=== PATIENT | male | born 1965 | race African-American/Black ===

== ENCOUNTER 2020-01-18 01:59 | Emergency (ER) | payer MEDICARE ==
[2020-01-18] MEDS ORDERED: ALBUTEROL 2.5 MG/3 ML NEBU IH ONE (02:52)
[2020-01-18] MEDS ORDERED: IPRATROPIUM 0.02% NEBU 2.5 ML IH ONE (02:52)
[2020-01-18] MEDS ORDERED: methylPREDNISolone Sod Succinate 125 MG/2 ML INJ IV ONE (02:52)
[2020-01-18] MEDS ORDERED: MAGNESIUM SULFATE 2 GM/50 ML BAG IV ONE (02:53)
--- NOTE | 2020-01-18 03:00 | Emergency Department Report ---
ED Shortness of Breath HPI - General Chief Complaint: Chest Pain Stated Complaint: ANTONIA Time Seen by Provider: 01/18/20 02:22 Source: EMS Mode of arrival: Stretcher Limitations: Language Barrier (translation line used) - History of Present Illness Initial Comments: 54-year-old male the past medical history early cholesterol, seizures, and asthma presents to the hospital with complaints of subjective fever and shortness of breath for 4 days. Patient complains of only occasional cough and has not lost a sense of taste or smell. He is not receiving tested for COVID. He denies nausea and vomiting but states he is having some diarrhea. He denies pain including headache, chest pain, and abdominal pain. He has been using his albuterol inhaler without improvement. Symptoms are also worse when people in his home smokes cigarettes he denies history of PE/DVT, calf tenderness, or recent travel. He has been compliant with medications. - Related Data Home Medications Medication Instructions Recorded Confirmed Last Taken Albuterol *Only Ed* [Proventil 2.5 mg IH PRN PRN 11/24/13 01/13/14 Unknown 0.5% NEBS] Citalopram [Celexa] 20 mg PO DAILY 11/24/13 01/13/14 11/25/13 Diazepam [Valium] 5 mg PO DAILY 11/24/13 01/13/14 11/25/13 Gabapentin 300 mg PO DAILY 11/24/13 01/13/14 11/25/13 Montelukast (Nf) [Singulair (Nf)] 5 mg PO DAILY 11/24/13 01/13/14 Unknown Mupirocin [Bactroban 2% OINT] 1 each TP TID 11/24/13 01/13/14 Unknown Quetiapine Fumarate [SEROquel] 100 mg PO DAILY 11/24/13 01/13/14 11/25/13 hydrOXYzine HCL [Atarax] 10 mg PO Q6HR 11/24/13 01/13/14 Unknown prednisoLONE SOD PHOSPHAT [Orapred] 7 ml PO BID 11/24/13 01/13/14 Unknown raNITIdine HCL [Ranitidine 150mg 150 mg PO DAILY 11/24/13 01/13/14 11/25/13 Cap] Previous Rx's Medication Instructions Recorded Last Taken Type Triamcinolone 0.1% [Kenalog 0.1% 1 applic TP BID #1 tube 14 11/25/13 Rx OINT] levETIRAcetam [Keppra] 750 mg PO BID #60 tab-cap 11/24/13 11/25/13 Rx ALBUTEROL NEB's [Proventil 0.083% 2.5 mg IH TID PRN #30 neb 01/18/20 Unknown Rx NEBS] Levalbuterol Hfa 45 Mcg/Puff 2 puff IH Q4H PRN #1 inhalation 01/18/20 Unknown Rx [Xopenex Hfa (Nf)] Nebulizer and Compressor 1 each MC PRN PRN #1 each 01/18/20 Unknown Rx [Sootheneb Compressor Nebulizer] Pseudoephedrine ER [Sudafed 12 Hr] 120 mg PO BID PRN #10 tablet.er 01/18/20 Unknown Rx Allergies Allergy/AdvReac Type Severity Reaction Status Date / Time No Known Allergies Allergy Verified 11/26/13 13:52 ED Review of Systems ROS: Stated complaint: ANTONIA Other details as noted in HPI Comment: All other systems reviewed and negative ED Past Medical Hx - Past Medical History Previous Medical History?: Yes Hx Seizures: Yes Hx Psychiatric Treatment: Yes Hx Asthma: Yes Additional medical history: hx of Brain Tumor. Elevated cholesterol - Surgical History Past Surgical History?: Yes Additional Surgical History: unk - Social History Smoking Status: Never Smoker Substance Use Type: None - Medications Home Medications: Home Medications Medication Instructions Recorded Confirmed Last Taken Type Triamcinolone 0.1% [Kenalog 0.1% 1 applic TP BID #1 tube 11/08/13 01/13/14 11/25/13 Rx OINT] Albuterol *Only Ed* [Proventil 2.5 mg IH PRN PRN 11/24/13 01/13/14 Unknown History 0.5% NEBS] Citalopram [Celexa] 20 mg PO DAILY 11/24/13 01/13/14 11/25/13 History Diazepam [Valium] 5 mg PO DAILY 11/24/13 01/13/14 11/25/13 History Gabapentin 300 mg PO DAILY 11/24/13 01/13/14 11/25/13 History Montelukast (Nf) [Singulair (Nf)] 5 mg PO DAILY 11/24/13 01/13/14 Unknown History Mupirocin [Bactroban 2% OINT] 1 each TP TID 11/24/13 01/13/14 Unknown History Quetiapine Fumarate [SEROquel] 100 mg PO DAILY 11/24/13 01/13/14 11/25/13 History hydrOXYzine HCL [Atarax] 10 mg PO Q6HR 11/24/13 01/13/14 Unknown History levETIRAcetam [Keppra] 750 mg PO BID #60 tab-cap 11/24/13 01/13/14 11/25/13 Rx prednisoLONE SOD PHOSPHAT [Orapred] 7 ml PO BID 11/24/13 01/13/14 Unknown History raNITIdine HCL [Ranitidine 150mg 150 mg PO DAILY 11/24/13 01/13/14 11/25/13 History Cap] ALBUTEROL NEB's [Proventil 0.083% 2.5 mg IH TID PRN #30 neb 01/18/20 Unknown Rx NEBS] Levalbuterol Hfa 45 Mcg/Puff 2 puff IH Q4H PRN #1 inhalation 01/18/20 Unknown Rx [Xopenex Hfa (Nf)] Nebulizer and Compressor 1 each MC PRN PRN #1 each 01/18/20 Unknown Rx [Sootheneb Compressor Nebulizer] Pseudoephedrine ER [Sudafed 12 Hr] 120 mg PO BID PRN #10 tablet.er 01/18/20 Unknown Rx ED Physical Exam - General Limitations: Language Barrier - Other Other exam information: General: No acute distress Head: Atraumatic Eyes: normal appearance ENT: Moist mucous membranes, nasal congestion which patient states is making it hard for him to breathe is Neck: Normal appearance, no midline tenderness Chest: Clear to auscultation bilaterally CV: Regular rate and rhythm Abdomen: Soft, normal bowel sounds, nontender, nondistended, no rebound or guarding Back: Normal inspection Extremity: Normal inspection, full range of motion, no calf tenderness or leg edema Neuro: Alert O x 3, no facial asymmetry, speech clear, no gross motor sensory deficit Psych: Appropriate behavior Skin: Skin signs of cupping noted to back ED Course Vital Signs 01/18/20 01/18/20 02:00 03:52 Temperature 98.1 F Pulse Rate 89 Pulse Rate [ 77 Anterior Bilateral Throughout] Respiratory 16 Rate Respiratory 20 Rate [Anterior Bilateral Throughout] Blood Pressure 141/95 [Left] O2 Sat by Pulse 98 Oximetry ED Medical Decision Making - Lab Data Result diagrams: 01/18/20 03:01 01/18/20 03:01 Lab Results 01/18/20 01/18/20 01/18/20 Range/Units 03:01 03:01 03:01 WBC 5.6 (4.5-11.0) K/mm3 RBC 4.90 (3.65-5.03) M/mm3 Hgb 14.4 (11.8-15.2) gm/dl Hct 42.6 (35.5-45.6) % MCV 87 (84-94) fl MCH 30 (28-32) pg MCHC 34 (32-34) % RDW 12.9 L (13.2-15.2) % Plt Count 204 (140-440) K/mm3 Lymph % (Auto) 10.5 L (13.4-35.0) % [place] % (Auto) 12.8 H (0.0-7.3) % Eos % (Auto) 0.5 (0.0-4.3) % Baso % (Auto) 0.1 (0.0-1.8) % Lymph # (Auto) 0.6 L (1.2-5.4) K/mm3 [place] # (Auto) 0.7 (0.0-0.8) K/mm3 Eos # (Auto) 0.0 (0.0-0.4) K/mm3 Baso # (Auto) 0.0 (0.0-0.1) K/mm3 Seg Neutrophils % 76.1 H (40.0-70.0) % Seg Neutrophils # 4.3 (1.8-7.7) K/mm3 PT 12.2 (12.2-14.9) Sec. INR 0.89 (0.87-1.13) Sodium 135 L (137-145) mmol/L Potassium 4.0 (3.6-5.0) mmol/L Chloride 98.7 (98-107) mmol/L Carbon Dioxide 26 (22-30) mmol/L Anion Gap 14 mmol/L BUN 15 (9-20) mg/dL Creatinine 0.9 (0.8-1.3) mg/dL Estimated GFR > 60 ml/min BUN/Creatinine Ratio 17 % Glucose 124 H (75-100) mg/dL Calcium 9.4 (8.4-10.2) mg/dL NT-Pro-B Natriuret Pep < 5 (0-900) pg/mL - EKG Data -: EKG Interpreted by Me ([facility]) EKG shows normal: sinus rhythm, ST-T waves (No STEMI) Rate: normal - Radiology Data Radiology results: report reviewed CHEST PA AND LATERAL VIEWS INDICATION: sob, cough, fever. COMPARISON: None FINDINGS: Support devices: None Heart: Normal Lungs/Pleura: No acute pulmonary or pleural findings. IMPRESSION: 1. No significant abnormality. - Medical Decision Making Patient ED work-up unremarkable. No signs of hypoxia or significant respiratory distress. Patient treated with Solu-Medrol and magnesium with some improvement in symptoms. Complains of persistent nasal congestion. Patient be discharged on medications for URI/asthma exacerbation and encouraged to receive outpatient pelvic testing. Community Health Counselor used at discharge to explain ED work-up results, disposition plan and to answer questions. Patient has a follow-up visit with his PMD on January 18. Critical Care Time: No Critical care attestation.: If time is entered above; I have spent that time in minutes in the direct care of this critically ill patient, excluding procedure time. ED Disposition Clinical Impression: Asthma exacerbation, URI (upper respiratory infection) Disposition: TO HOME OR SELFCARE Is pt being admited?: No Does the pt Need Aspirin: No Condition: Stable Instructions: Asthma (ED), Upper Respiratory Infection (ED) Additional Instructions: Take the medication as prescribed. Follow-up with your doctor or doctor/clinic provided. Return if symptoms worsen as indicated by your discharge instructions. Prescriptions: ALBUTEROL NEB's [Proventil 0.083% NEBS] 2.5 mg IH TID PRN #30 neb PRN Reason: Wheezing Nebulizer and Compressor [Sootheneb Compressor Nebulizer] 1 each MC PRN PRN #1 each PRN Reason: Wheezing Pseudoephedrine ER [Sudafed 12 Hr] 120 mg PO BID PRN #10 tablet.er PRN Reason: Nasal Congestion Levalbuterol Hfa 45 Mcg/Puff [Xopenex Hfa (Nf)] 2 puff IH Q4H PRN #1 inhalation PRN Reason: Wheezing Referrals: PRIMARY CARE, [Primary Care Provider] - 01/19/20 Time of Disposition: 06:18
--- NOTE | 2020-01-18 03:22 | XRay Report ---
CHEST PA AND LATERAL VIEWS INDICATION: sob, cough, fever. COMPARISON: None FINDINGS: Support devices: None Heart: Normal Lungs/Pleura: No acute pulmonary or pleural findings. IMPRESSION: 1. No significant abnormality. Signer Name: Uvaldo Pierre MD Signed: 01/18/2020 3:17 AM Workstation Name: [id number]
[2020-01-18 03:24] LABS: Basophils % (Auto) 0.1 % (0.0-1.8); Eosinophils % (Auto) 0.5 % (0.0-4.3); Hematocrit 42.6 % (35.5-45.6); Hemoglobin 14.4 gm/dl (11.8-15.2); Lymphocytes # (Auto) 0.6 K/mm3 (1.2-5.4); Lymphocytes % (Auto) 10.5 % (13.4-35.0); Mean Corpuscular HGB Conc 34 % (32-34); Mean Corpuscular Volume 87 fl (84-94); Monocytes # (Auto) 0.7 K/mm3 (0.0-0.8); Monocytes % (Auto) 12.8 % (0.0-7.3); Platelet Count 204 K/mm3 (140-440); Red Cell Distribution Width 12.9 % (13.2-15.2)
[2020-01-18 03:32] LABS: INR 0.89 (0.87-1.13)
[2020-01-18 03:50] LABS: BUN/Creatinine Ratio 17; Blood Urea Nitrogen 15 mg/dL (9-20); Calcium 9.4 mg/dL (8.4-10.2); Hemolysis Index 7
[2020-01-18 06:19] VITALS: BP 125/90
== END 2020-01-18 06:50 | disposition home or self-care (01) ==
LOC: ED 01:59
DX: J06.9 Acute upper respiratory infection, unspecified (principal); J45.901 Unspecified asthma with (acute) exacerbation; E78.00 Pure hypercholesterolemia, unspecified; Z86.69 Personal history of other diseases of the nervous system and sense organs; Z79.899 Other long term (current) drug therapy
CPT/HCPCS: 36415; 71046; 80048; 83880; 85025; 85610; 93005; 94640; 96365; 96375; 99284; J2930; J3475; 94644

== ENCOUNTER 2020-09-05 15:34 | Emergency (ER) | payer MEDICARE ==
[2020-09-05] MEDS ORDERED: levETIRAcetam 1000 MG/NS 0.75% 1,000 MG/100 ML BAG IV ONE (16:12)
--- NOTE | 2020-09-05 16:15 | Emergency Department Report ---
ED Seizure HPI - General Stated Complaint: ANTONIA/SEIZURE Time Seen by Provider: 09/05/20 16:05 Source: EMS, RN notes reviewed, old records reviewed Mode of arrival: Stretcher Limitations: Altered Mental Status - History of Present Illness Initial Comments: Chief complaint: Shortness of breath, seizure HPI: This is a 55-year-old male with history of asthma, seizure disorder, benign brain tumor status post craniotomy presents with shortness of breath which was the initial phone call concern to EMS. Upon EMS arrival patient had generalized tonic-clonic seizure. Patient is currently nonverbal. History obtained from electronic medical record. Patient will make eye contact. He is otherwise nonverbal. MD Complaint: seizure Description of Episode: tonic-clonic movement Witnessed:: Yes Trauma: No Seizure History: known seizure disorder Place: home Possible Precipitating Event: other (Possible preceding asthma attack, initial complaint shortness of breath) Treatments Prior to Arrival: other (EMS transport) - Related Data Home Medications Medication Instructions Recorded Confirmed Last Taken Albuterol *Only Ed* [Proventil 2.5 mg IH PRN PRN 11/24/13 01/13/14 Unknown 0.5% NEBS] Citalopram [Celexa] 20 mg PO DAILY 11/24/13 01/13/14 11/25/13 Diazepam [Valium] 5 mg PO DAILY 11/24/13 01/13/14 11/25/13 Gabapentin 300 mg PO DAILY 11/24/13 01/13/14 11/25/13 Montelukast (Nf) [Singulair (Nf)] 5 mg PO DAILY 11/24/13 01/13/14 Unknown Mupirocin [Bactroban 2% OINT] 1 each TP TID 11/24/13 01/13/14 Unknown Quetiapine Fumarate [SEROquel] 100 mg PO DAILY 11/24/13 01/13/14 11/25/13 hydrOXYzine HCL [Atarax] 10 mg PO Q6HR 11/24/13 01/13/14 Unknown prednisoLONE SOD PHOSPHAT [Orapred] 7 ml PO BID 11/24/13 01/13/14 Unknown raNITIdine HCL [Ranitidine 150mg 150 mg PO DAILY 11/24/13 01/13/14 11/25/13 Cap] Previous Rx's Medication Instructions Recorded Last Taken Type Triamcinolone 0.1% [Kenalog 0.1% 1 applic TP BID #1 tube 11/08/13 11/25/13 Rx OINT] levETIRAcetam [Keppra] 750 mg PO BID #60 tab-cap 11/24/13 11/25/13 Rx ALBUTEROL NEB's [Proventil 0.083% 2.5 mg IH TID PRN #30 neb 01/18/20 Unknown Rx NEBS] Ibuprofen [Motrin] 600 mg PO Q8H PRN #20 tablet 01/18/20 Unknown Rx Levalbuterol Hfa 45 Mcg/Puff 2 puff IH Q4H PRN #1 inhalation 01/18/20 Unknown Rx [Xopenex Hfa (Nf)] Nebulizer and Compressor 1 each MC PRN PRN #1 each 01/18/20 Unknown Rx [Sootheneb Compressor Nebulizer] Pseudoephedrine ER [Sudafed 12 Hr] 120 mg PO BID PRN #10 tablet.er 01/18/20 Unknown Rx levETIRAcetam [Keppra TAB] 750 mg PO BID 30 Days #60 tablet 09/05/20 Unknown Rx Allergies Allergy/AdvReac Type Severity Reaction Status Date / Time No Known Allergies Allergy Verified 11/26/13 13:52 ED Review of Systems ROS: Stated complaint: ANTONIA/SEIZURE Other details as noted in HPI Comment: Unobtainable due to pts medical conditions (Altered mental status) ED Past Medical Hx - Past Medical History Previous Medical History?: Yes Hx Seizures: Yes Hx Psychiatric Treatment: Yes Hx Asthma: Yes Additional medical history: hx of Brain Tumor. Elevated cholesterol - Surgical History Past Surgical History?: Yes Additional Surgical History: unk - Social History Smoking Status: Never Smoker Substance Use Type: None - Medications Home Medications: Home Medications Medication Instructions Recorded Confirmed Last Taken Type Triamcinolone 0.1% [Kenalog 0.1% 1 applic TP BID #1 tube 11/08/13 01/13/14 11/25/13 Rx OINT] Albuterol *Only Ed* [Proventil 2.5 mg IH PRN PRN 11/24/13 01/13/14 Unknown History 0.5% NEBS] Citalopram [Celexa] 20 mg PO DAILY 11/24/13 01/13/14 11/25/13 History Diazepam [Valium] 5 mg PO DAILY 11/24/13 01/13/14 11/25/13 History Gabapentin 300 mg PO DAILY 11/24/13 01/13/14 11/25/13 History Montelukast (Nf) [Singulair (Nf)] 5 mg PO DAILY 11/24/13 01/13/14 Unknown History Mupirocin [Bactroban 2% OINT] 1 each TP TID 11/24/13 01/13/14 Unknown History Quetiapine Fumarate [SEROquel] 100 mg PO DAILY 11/24/13 01/13/14 11/25/13 History hydrOXYzine HCL [Atarax] 10 mg PO Q6HR 11/24/13 01/13/14 Unknown History levETIRAcetam [Keppra] 750 mg PO BID #60 tab-cap 11/24/13 01/13/14 11/25/13 Rx prednisoLONE SOD PHOSPHAT [Orapred] 7 ml PO BID 11/24/13 01/13/14 Unknown History raNITIdine HCL [Ranitidine 150mg 150 mg PO DAILY 11/24/13 01/13/14 11/25/13 History Cap] ALBUTEROL NEB's [Proventil 0.083% 2.5 mg IH TID PRN #30 neb 01/18/20 Unknown Rx NEBS] Ibuprofen [Motrin] 600 mg PO Q8H PRN #20 tablet 01/18/20 Unknown Rx Levalbuterol Hfa 45 Mcg/Puff 2 puff IH Q4H PRN #1 inhalation 01/18/20 Unknown Rx [Xopenex Hfa (Nf)] Nebulizer and Compressor 1 each MC PRN PRN #1 each 01/18/20 Unknown Rx [Sootheneb Compressor Nebulizer] Pseudoephedrine ER [Sudafed 12 Hr] 120 mg PO BID PRN #10 tablet.er 01/18/20 Unknown Rx levETIRAcetam [Keppra TAB] 750 mg PO BID 30 Days #60 tablet 09/05/20 Unknown Rx ED Physical Exam - General Limitations: Altered Mental Status General appearance: in no apparent distress, lethargic, other (Easily arousable, drowsy, protecting airway) - Head Head exam: Present: atraumatic, normocephalic - Eye Eye exam: Present: normal appearance - ENT ENT exam: Present: mucous membranes moist - Neck Neck exam: Present: normal inspection, full ROM - Respiratory Respiratory exam: Present: normal lung sounds bilaterally. Absent: respiratory distress, wheezes, rales - Cardiovascular Cardiovascular Exam: Present: regular rate, normal rhythm, normal heart sounds. Absent: systolic murmur, diastolic murmur, rubs, gallop - GI/Abdominal GI/Abdominal exam: Present: soft, normal bowel sounds. Absent: distended, tenderness, guarding, rebound - Rectal Rectal exam: Present: deferred - Extremities Exam Extremities exam: Present: normal inspection - Neurological Exam Neurological exam: Present: altered - Psychiatric Psychiatric exam: Present: normal mood, flat affect - Skin Skin exam: Present: warm, dry, intact, normal color. Absent: rash ED Course Vital Signs 09/05/20 09/05/20 09/05/20 16:25 16:31 17:31 Pulse Rate 98 H 90 Respiratory 16 13 14 Rate Blood Pressure 114/76 125/87 O2 Sat by Pulse 97 97 98 Oximetry ED Medical Decision Making - Lab Data Result diagrams: 09/05/20 16:18 09/05/20 16:18 - Medical Decision Making 1. Seizure with history of seizure disorder. Once awake I used [employer] erp implementation consultant for [place] language assistance. He explained that he missed yesterday's dose of medication. He took extra dose of seizure medication which made him very sleepy. He politely requested refill of his medication. After 5 hours observation, he asked to be discharged. He called family member from his personal [place] [facility] to arrange transportation. According to electronic medical record,, Keppra dose is 750 mg p.o. twice daily 2. History of asthma: Patient received IV Solu-Medrol upon arrival for reported history of shortness of breath patient had normal lung exam upon discharge. Critical care attestation.: If time is entered above; I have spent that time in minutes in the direct care of this critically ill patient, excluding procedure time. ED Disposition Clinical Impression: Breakthrough seizure, Seizure disorder, History of asthma Disposition: - TO HOME OR SELFCARE Is pt being admited?: No Does the pt Need Aspirin: No Condition: Stable Instructions: Epilepsy, [id number] Prescriptions: levETIRAcetam [Keppra TAB] 750 mg PO BID 30 Days #60 tablet Referrals: KAREL NUÑEZ MD [Referring] - 3-5 Days
[2020-09-05] MEDS ORDERED: methylPREDNISolone Sod Succinate 125 MG/2 ML INJ IV ONE (16:29)
[2020-09-05 16:32] LABS: Eosinophils % (Auto) 0.2 % (0.0-4.3); Hematocrit 42.7 % (35.5-45.6); Hemoglobin 14.2 gm/dl (11.8-15.2); Lymphocytes # (Auto) 0.3 K/mm3 (1.2-5.4); Lymphocytes % (Auto) 4.5 % (13.4-35.0); Mean Corpuscular HGB Conc 33 % (32-34); Mean Corpuscular Volume 87 fl (84-94); Monocytes # (Auto) 0.4 K/mm3 (0.0-0.8); Monocytes % (Auto) 6.1 % (0.0-7.3); Platelet Count 199 K/mm3 (140-440); Red Cell Distribution Width 13.5 % (13.2-15.2)
[2020-09-05 16:56] LABS: Alanine Aminotransferase 27 units/L (7-56); Albumin 4.2 g/dL (3.9-5); Blood Urea Nitrogen 16 mg/dL (9-20); Calcium 9.1 mg/dL (8.4-10.2); Hemolysis Index 9
[2020-09-05 17:09] LABS: BUN/Creatinine Ratio 27
[2020-09-05 20:56] VITALS: BP 115/71
== END 2020-09-05 20:57 | disposition home or self-care (01) ==
LOC: ED 15:34
DX: G40.909 Epilepsy, unspecified, not intractable, without status epilepticus (principal); J45.909 Unspecified asthma, uncomplicated; Z79.1 Long term (current) use of non-steroidal anti-inflammatories (NSAID); Z79.899 Other long term (current) drug therapy
CPT/HCPCS: 36415; 80053; 82962; 85025; 96374; 96375; 99284; J1953; J2930

== ENCOUNTER 2020-10-27 12:02 | Emergency (ER) | payer MEDICARE ==
--- NOTE | 2020-10-27 14:38 | Event Note ---
ED Screening Note Date of service: 10/27/20 Time: 14:36 ED Screening Note: 55-year-old male patient with history of asthma, seizure disorder, and benign brain tumor status post craniotomy presents to the emergency department with complaints of sore throat. He is unsure how long his sore throat has been present. He was evaluated at another emergency department yesterday. He was prescribed Clarithromycin, Ibuprofen, Phenergan, and Tylenol Extra Strength. States he has been taking these medications with limited relief. Tachycardic in triage. General: Awake, appropriately interactive, no acute distress. ENT: Pharyngeal erythema without exudate. Neck: Supple. Full range of motion intact. Cardiovascular: Normal peripheral perfusion. Pulmonary: No respiratory distress. Patient is speaking normally without use of accessory muscles. Skin: No apparent rashes or lesions. Neurological: No facial asymmetry. Speech is clear. Follows commands. Patient is alert and oriented. Musculoskeletal: Moves all four extremities spontaneously with normal range of motion. Psych: Cooperative. Appropriate mood and affect. Rapid strep ordered and sent to lab for analysis. I have greeted and performed a focused rapid initial assessment of this patient. A comprehensive ED assessment and evaluation of the patient, analysis of all test results, and completion of the medical decision-making process will be conducted by additional ED providers. This initial assessment/diagnostic orders/clinical plan/treatment(s) is/are subject to change based on patients health status, clinical progression and re-assessment. Further treatment and workup at subsequent clinical provider's discretion. Patient/guardian urged not to elope from the ED as their condition may be serious if not clinically assessed and managed.
[2020-10-27] MEDS ORDERED: SODIUM CHLORIDE 0.9% 1000 ML 1,000 ML IV ONE (16:43)
[2020-10-27] MEDS ORDERED: KETOROLAC 30 MG/1 ML INJ IV STA (16:44)
[2020-10-27] MEDS ORDERED: ONDANSETRON 4 MG/2 ML INJ IV STA (16:44)
[2020-10-27 17:35] LABS: Basophils % (Auto) 0.3 % (0.0-1.8); Hematocrit 46.7 % (35.5-45.6); Hemoglobin 15.6 gm/dl (11.8-15.2); Lymphocytes # (Auto) 0.3 K/mm3 (1.2-5.4); Lymphocytes % (Auto) 5.9 % (13.4-35.0); Mean Corpuscular HGB Conc 33 % (32-34); Mean Corpuscular Volume 86 fl (84-94); Monocytes # (Auto) 0.7 K/mm3 (0.0-0.8); Monocytes % (Auto) 13.8 % (0.0-7.3); Platelet Count 181 K/mm3 (140-440); Red Blood Count 5.41 M/mm3 (3.65-5.03); Red Cell Distribution Width 12.9 % (13.2-15.2)
[2020-10-27 17:37] LABS: Alanine Aminotransferase 51 units/L (7-56); Albumin 4.6 g/dL (3.9-5); Blood Urea Nitrogen 11 mg/dL (9-20); Calcium 9.1 mg/dL (8.4-10.2); Hemolysis Index 125
[2020-10-27 17:38] LABS: BUN/Creatinine Ratio 16
--- NOTE | 2020-10-27 19:15 | Emergency Department Report ---
ED General Adult HPI - General Chief complaint: Pain General Stated complaint: FEVER Time Seen by Provider: 10/27/20 16:39 Source: patient, EMS Mode of arrival: Stretcher Limitations: Language Barrier (IV did translate via his son using his phone speaker) - History of Present Illness Initial comments: 55-year-old male with past medical history of untreated seizure disorder, asthma and previous brain tumor presents emerged department complaining of cough, congestion, myalgia, fevers sensations, chills, occasional vomiting for the last 3 days and the night progressed infection presents emerge department seeking reevaluation of his condition. He also reports having sensation of [place] but reports no actual sore throat states he was evaluated on yesterday at a medical facility and was to be discharged home with Biaxin, liquid Phenergan and Motrin which he has been taking as prescribed with no significant improvement. Reports no hemoptysis no hematemesis hematochezia, no nausea, no diarrhea, no constipation, no rashes, no ear pain. Radiation: non-radiation Severity scale (0 -10): 5 Quality: aching, dull Consistency: constant Improves with: none Worsens with: none Associated Symptoms: cough, loss of appetite, malaise, nausea/vomiting. denies: diaphoresis, fever/chills, shortness of breath - Related Data Home Medications Medication Instructions Recorded Confirmed Last Taken Albuterol *Only Ed* [Proventil 2.5 mg IH PRN PRN 11/24/13 01/13/14 Unknown 0.5% NEBS] Citalopram [Celexa] 20 mg PO DAILY 11/24/13 01/13/14 11/25/13 Diazepam [Valium] 5 mg PO DAILY 11/24/13 01/13/14 11/25/13 Gabapentin 300 mg PO DAILY 11/24/13 01/13/14 11/25/13 Montelukast (Nf) [Singulair (Nf)] 5 mg PO DAILY 11/24/13 01/13/14 Unknown Mupirocin [Bactroban 2% OINT] 1 each TP TID 11/24/13 01/13/14 Unknown Quetiapine Fumarate [SEROquel] 100 mg PO DAILY 11/24/13 01/13/14 11/25/13 hydrOXYzine HCL [Atarax] 10 mg PO Q6HR 11/24/13 01/13/14 Unknown prednisoLONE SOD PHOSPHAT [Orapred] 7 ml PO BID 11/24/13 01/13/14 Unknown raNITIdine HCL [Ranitidine 150mg 150 mg PO DAILY 11/24/13 01/13/14 11/25/13 Cap] Previous Rx's Medication Instructions Recorded Last Taken Type Triamcinolone 0.1% [Kenalog 0.1% 1 applic TP BID #1 tube 11/08/13 11/25/13 Rx OINT] levETIRAcetam [Keppra] 750 mg PO BID #60 tab-cap 11/24/13 11/25/13 Rx ALBUTEROL NEB's [Proventil 0.083% 2.5 mg IH TID PRN #30 neb 01/18/20 Unknown Rx NEBS] Ibuprofen [Motrin] 600 mg PO Q8H PRN #20 tablet 01/18/20 Unknown Rx Levalbuterol Hfa 45 Mcg/Puff 2 puff IH Q4H PRN #1 inhalation 01/18/20 Unknown Rx [Xopenex Hfa (Nf)] Nebulizer and Compressor 1 each MC PRN PRN #1 each 01/18/20 Unknown Rx [Sootheneb Compressor Nebulizer] Pseudoephedrine ER [Sudafed 12 Hr] 120 mg PO BID PRN #10 tablet.er 01/18/20 Unknown Rx levETIRAcetam [Keppra TAB] 750 mg PO BID 30 Days #60 tablet 09/05/20 Unknown Rx Ketorolac [Toradol] 10 mg PO Q6H PRN #14 tablet 10/27/20 Unknown Rx Ondansetron [Zofran Odt] 4 mg PO Q8HR #30 tab.rapdis 10/27/20 Unknown Rx Allergies Allergy/AdvReac Type Severity Reaction Status Date / Time No Known Allergies Allergy Verified 11/26/13 13:52 ED Review of Systems ROS: Stated complaint: FEVER Other details as noted in HPI Comment: All other systems reviewed and negative ED Past Medical Hx - Past Medical History Hx Seizures: Yes Hx Psychiatric Treatment: Yes Hx Asthma: Yes Additional medical history: hx of Brain Tumor. Elevated cholesterol - Surgical History Additional Surgical History: unk - Social History Smoking Status: Never Smoker Substance Use Type: None - Medications Home Medications: Home Medications Medication Instructions Recorded Confirmed Last Taken Type Triamcinolone 0.1% [Kenalog 0.1% 1 applic TP BID #1 tube 11/08/13 01/13/14 11/25/13 Rx OINT] Albuterol *Only Ed* [Proventil 2.5 mg IH PRN PRN 11/24/13 01/13/14 Unknown History 0.5% NEBS] Citalopram [Celexa] 20 mg PO DAILY 11/24/13 01/13/14 11/25/13 History Diazepam [Valium] 5 mg PO DAILY 11/24/13 01/13/14 11/25/13 History Gabapentin 300 mg PO DAILY 11/24/13 01/13/14 11/25/13 History Montelukast (Nf) [Singulair (Nf)] 5 mg PO DAILY 11/24/13 01/13/14 Unknown History Mupirocin [Bactroban 2% OINT] 1 each TP TID 11/24/13 01/13/14 Unknown History Quetiapine Fumarate [SEROquel] 100 mg PO DAILY 11/24/13 01/13/14 11/25/13 History hydrOXYzine HCL [Atarax] 10 mg PO Q6HR 11/24/13 01/13/14 Unknown History levETIRAcetam [Keppra] 750 mg PO BID #60 tab-cap 11/24/13 01/13/14 11/25/13 Rx prednisoLONE SOD PHOSPHAT [Orapred] 7 ml PO BID 11/24/13 01/13/14 Unknown History raNITIdine HCL [Ranitidine 150mg 150 mg PO DAILY 11/24/13 01/13/14 11/25/13 History Cap] ALBUTEROL NEB's [Proventil 0.083% 2.5 mg IH TID PRN #30 neb 01/18/20 Unknown Rx NEBS] Ibuprofen [Motrin] 600 mg PO Q8H PRN #20 tablet 01/18/20 Unknown Rx Levalbuterol Hfa 45 Mcg/Puff 2 puff IH Q4H PRN #1 inhalation 01/18/20 Unknown Rx [Xopenex Hfa (Nf)] Nebulizer and Compressor 1 each MC PRN PRN #1 each 01/18/20 Unknown Rx [Sootheneb Compressor Nebulizer] Pseudoephedrine ER [Sudafed 12 Hr] 120 mg PO BID PRN #10 tablet.er 01/18/20 Unknown Rx levETIRAcetam [Keppra TAB] 750 mg PO BID 30 Days #60 tablet 09/05/20 Unknown Rx Ketorolac [Toradol] 10 mg PO Q6H PRN #14 tablet 10/27/20 Unknown Rx Ondansetron [Zofran Odt] 4 mg PO Q8HR #30 tab.rapdis 10/27/20 Unknown Rx ED Physical Exam - General Limitations: Language Barrier General appearance: alert, in no apparent distress - Head Head exam: Present: atraumatic, normocephalic - Eye Eye exam: Present: normal appearance, PERRL, EOMI - ENT ENT exam: Present: normal exam, mucous membranes moist - Neck Neck exam: Present: normal inspection, full ROM - Respiratory Respiratory exam: Present: normal lung sounds bilaterally. Absent: respiratory distress, wheezes, rhonchi, stridor - Cardiovascular Cardiovascular Exam: Present: regular rate, normal rhythm. Absent: systolic murmur, diastolic murmur, rubs, gallop - GI/Abdominal GI/Abdominal exam: Present: soft, normal bowel sounds. Absent: distended, tenderness - Rectal Rectal exam: Present: deferred - Extremities Exam Extremities exam: Present: normal inspection, full ROM, normal capillary refill - Back Exam Back exam: Present: normal inspection, full ROM. Absent: CVA tenderness (R), CVA tenderness (L) - Neurological Exam Neurological exam: Present: alert, oriented X3, CN II-XII intact, normal gait. Absent: altered - Psychiatric Psychiatric exam: Present: normal affect, normal mood. Absent: anxious, flat affect - Skin Skin exam: Present: warm, dry, intact, normal color. Absent: rash ED Course Vital Signs 10/27/20 10/27/20 12:10 17:31 Temperature 99.6 F Pulse Rate 106 H Respiratory 16 16 Rate Blood Pressure 141/97 [Left] O2 Sat by Pulse 100 Oximetry ED Medical Decision Making - Lab Data Result diagrams: 10/27/20 16:50 10/27/20 16:50 - Radiology Data Radiology results: report reviewed [facility] [address] [place] [address] XRay Report Signed Patient: MARCIO JUAN MR#: [id number] : 1965 Acct:[id number] Age/Sex: 55 / M ADM Date: 10/27/20 Loc: ED Attending Dr: Ordering Physician: TIARRA LOPEZ Date of Service: 10/27/20 Procedure(s): XR chest routine 2V Accession Number(s): [id number] cc: TIARRA LOPEZ Fluoro Time In Minutes: CHEST 2 VIEWS INDICATION / CLINICAL INFORMATION: cough. FINDINGS: SUPPORT DEVICES: None. HEART / MEDIASTINUM: No significant abnormality. LUNGS / PLEURA: No significant pulmonary or pleural abnormality. No pneumothorax. ADDITIONAL FINDINGS: No significant additional findings. IMPRESSION: 1. No acute findings. Signer Name: Bishop Beal MD Signed: 10/27/2020 7:27 PM Workstation Name: [id number] Transcribed By: Dictated By: Bishop Beal MD Electronically Authenticated By: Bishop Beal MD Signed Date/Time: 10/27/201926 DD/ 25 TD/TT: Print Cancel - Medical Decision Making This 55-year-old male patient presents with symptoms suspicious for likely viral upper respiratory tract infection. Differential includes bacterial pneumonia, sinusitis, allergic rhinitis,. Do not suspect underlying Cardiopulmonary process. I considered but think unlikely dangerous cause of this patient sympt oms to include acute coronary syndrome, CHF or COPD exacerbations, pneumonia, pneumothorax. Patient is nontoxic appearing and not in need of emergent medical intervention. Plan: Reassurance, reassessment, [id number] medications, discharge with PCP follow-up Critical care attestation.: If time is entered above; I have spent that time in minutes in the direct care o f this critically ill patient, excluding procedure time. ED Disposition Clinical Impression: Cough, Ear pain, URI (upper respiratory infection) Disposition: DC-01 TO HOME OR SELFCARE Is pt being admited?: No Does the pt Need Aspirin: No Condition: Stable Instructions: Ear Drops, Adult, Cough, Adult, [id number], Upper Respiratory Infection, Adult, Cough, Adult Prescriptions: Ketorolac [Toradol] 10 mg PO Q6H PRN #14 tablet PRN Reason: Pain Ondansetron [Zofran Odt] 4 mg PO Q8HR #30 tab.rapdis Referrals: [facility] [Provider Group] - 3-5 Days
[2020-10-27 19:21] LABS: Bilirubin,Urine NEG (Negative); Blood,Urine NEG (Negative); Color,Urine Yellow (Yellow); Protein,Urine <15 mg/dL mg/dL (Negative); Urobilinogen,Urine < 2.0 mg/dL (<2.0); WBC,Urine < 1.0 /HPF (0.0-6.0)
--- NOTE | 2020-10-27 19:31 | XRay Report ---
CHEST 2 VIEWS INDICATION / CLINICAL INFORMATION: cough. FINDINGS: SUPPORT DEVICES: None. HEART / MEDIASTINUM: No significant abnormality. LUNGS / PLEURA: No significant pulmonary or pleural abnormality. No pneumothorax. ADDITIONAL FINDINGS: No significant additional findings. IMPRESSION: 1. No acute findings. Signer Name: Bishop Beal MD Signed: 10/27/2020 7:27 PM Workstation Name: [id number]
[2020-10-27 19:54] VITALS: BP 132/65
== END 2020-10-27 20:29 | disposition home or self-care (01) ==
LOC: ED 12:02
DX: J06.9 Acute upper respiratory infection, unspecified (principal); R05 Cough; H92.09 Otalgia, unspecified ear; R56.9 Unspecified convulsions; J45.909 Unspecified asthma, uncomplicated; Z79.1 Long term (current) use of non-steroidal anti-inflammatories (NSAID); Z79.899 Other long term (current) drug therapy
CPT/HCPCS: 36415; 71046; 80053; 81001; 83690; 85025; 96361; 96374; 96375; 99284; J1885; J2405; J7030

== ENCOUNTER 2020-11-11 00:50 | Emergency (ER) | payer MEDICARE ==
[2020-11-11] MEDS ORDERED: ASPIRIN 325 MG TAB PO ONE (01:22)
--- NOTE | 2020-11-11 02:05 | XRay Report ---
CHEST 1 VIEW 11/11/2020 12:49 AM INDICATION / CLINICAL INFORMATION: chest pain. COMPARISON: 10/27/20 FINDINGS: SUPPORT DEVICES: None. HEART / MEDIASTINUM: No significant abnormality. LUNGS / PLEURA: Mild patchy bibasilar densities. No pneumothorax. ADDITIONAL FINDINGS: No significant additional findings. IMPRESSION: 1. Mild patchy bibasilar densities are nonspecific and could represent atelectasis versus early infil trate. Signer Name: Zulay Garcia MD Signed: 11/11/2020 2:01 AM Workstation Name: [id number]
[2020-11-11 02:18] LABS: Basophils % (Auto) 0.4 % (0.0-1.8); Eosinophils % (Auto) 0.1 % (0.0-4.3); Hematocrit 39.2 % (35.5-45.6); Hemoglobin 13.2 gm/dl (11.8-15.2); Lymphocytes # (Auto) 0.5 K/mm3 (1.2-5.4); Lymphocytes % (Auto) 10.3 % (13.4-35.0); Mean Corpuscular HGB Conc 34 % (32-34); Mean Corpuscular Volume 84 fl (84-94); Monocytes # (Auto) 0.6 K/mm3 (0.0-0.8); Monocytes % (Auto) 13.7 % (0.0-7.3); Platelet Count 366 K/mm3 (140-440); Red Blood Count 4.65 M/mm3 (3.65-5.03); Red Cell Distribution Width 12.6 % (13.2-15.2)
[2020-11-11 02:32] LABS: Alanine Aminotransferase 28 units/L (7-56); Albumin 3.9 g/dL (3.9-5); Blood Urea Nitrogen 6 mg/dL (9-20); Calcium 8.9 mg/dL (8.4-10.2); Hemolysis Index 2
[2020-11-11 02:41] LABS: BUN/Creatinine Ratio 10
[2020-11-11] MEDS ORDERED: BENZONATATE 100 MG CAP PO ONE (22:18)
[2020-11-11] MEDS ORDERED: ACETAMINOPHEN 325 MG TAB PO ONE (22:18)
--- NOTE | 2020-11-11 22:25 | Emergency Department Report ---
HPI - General Chief Complaint: Dyspnea/Respdistress Time Seen by Provider: 11/11/20 21:57 - HPI HPI: This patient presented to the emergency department yesterday evening. His chart was just presented to me for evaluation. 55-year-old male presents to the emergency department with a complaint of a 1.5- week history of some intermittent shortness of breath, a mixed dry and productive cough, intermittent fevers, and a headache. The patient says that he was diagnosed with Covid in urgent care about 2 weeks ago. He has been taking ibuprofen for his headache and was placed on a course of steroids, but says that his symptoms have not improved greatly. When the patient initially came in through triage he had his son with him. The patient's son, Robel, had said that the patient was having shortness of breath and chest pain. The patient denies having chest pain at the time of my initial examination. He has a past medical history of asthma, seizures, history of brain tumor, high cholesterol. Currently his headache is 6 out of 10 in intensity. No known aggravating or alleviating factors. He denies any vision change, slurred speech, numbness or paresthesias, or any neurological deficits. ED Past Medical Hx - Past Medical History Previous Medical History?: Yes Hx Seizures: Yes Hx Psychiatric Treatment: Yes Hx Asthma: Yes Additional medical history: hx of Brain Tumor. Elevated cholesterol - Surgical History Past Surgical History?: Yes Additional Surgical History: unk - Social History Smoking Status: Never Smoker Substance Use Type: None - Medications Home Medications: Home Medications Medication Instructions Recorded Confirmed Last Taken Type Triamcinolone 0.1% [Kenalog 0.1% 1 applic TP BID #1 tube 11/08/13 01/13/14 11/25/13 Rx OINT] Albuterol *Only Ed* [Proventil 2.5 mg IH PRN PRN 11/24/13 01/13/14 Unknown History 0.5% NEBS] Citalopram [Celexa] 20 mg PO DAILY 11/24/13 01/13/14 11/25/13 History Diazepam [Valium] 5 mg PO DAILY 11/24/13 01/13/14 11/25/13 History Gabapentin 300 mg PO DAILY 11/24/13 01/13/14 11/25/13 History Montelukast (Nf) [Singulair (Nf)] 5 mg PO DAILY 11/24/13 01/13/14 Unknown History Mupirocin [Bactroban 2% OINT] 1 each TP TID 11/24/13 01/13/14 Unknown History Quetiapine Fumarate [SEROquel] 100 mg PO DAILY 11/24/13 01/13/14 11/25/13 History hydrOXYzine HCL [Atarax] 10 mg PO Q6HR 11/24/13 01/13/14 Unknown History levETIRAcetam [Keppra] 750 mg PO BID #60 tab-cap 11/24/13 01/13/14 11/25/13 Rx prednisoLONE SOD PHOSPHAT [Orapred] 7 ml PO BID 11/24/13 01/13/14 Unknown History raNITIdine HCL [Ranitidine 150mg 150 mg PO DAILY 11/24/13 01/13/14 11/25/13 History Cap] ALBUTEROL NEB's [Proventil 0.083% 2.5 mg IH TID PRN #30 neb 01/18/20 Unknown Rx NEBS] Ibuprofen [Motrin] 600 mg PO Q8H PRN #20 tablet 01/18/20 Unknown Rx Levalbuterol Hfa 45 Mcg/Puff 2 puff IH Q4H PRN #1 inhalation 01/18/20 Unknown R x [Xopenex Hfa (Nf)] Nebulizer and Compressor 1 each MC PRN PRN #1 each 01/18/20 Unknown Rx [Sootheneb Compressor Nebulizer] Pseudoephedrine ER [Sudafed 12 Hr] 120 mg PO BID PRN #10 tablet.er 01/18/20 Unknown Rx levETIRAcetam [Keppra TAB] 750 mg PO BID 30 Days #60 tablet 09/05/20 Unknown Rx Ketorolac [Toradol] 10 mg PO Q6H PRN #14 tablet 10/27/20 Unknown Rx Ondansetron [Zofran Odt] 4 mg PO Q8HR #30 tab.rapdis 10/27/20 Unknown Rx Albuterol Mdi (or & Nicu Only) 2 puff IH QID PRN #8.5 gram 11/12/20 Unknown Rx [ProAir HFA Inhaler] Amoxicillin/Potassium Clav 1 each PO BID #14 tablet 11/12/20 Unknown Rx [Augmentin 875-125 Tablet] Benzonatate [Tessalon Perles] 100 mg PO Q8HR PRN #20 capsule 11/12/20 Unknown Rx ED Review of Systems ROS: Stated complaint: COVID+/ANTONIA Other details as noted in HPI Comment: All other systems reviewed and negative Constitutional: fever (Intermittent). denies: weakness Eyes: denies: eye pain, vision change ENT: denies: ear pain, throat pain Respiratory: cough, shortness of breath Cardiovascular: chest pain. denies: edema Gastrointestinal: denies: abdominal pain, vomiting Genitourinary: denies: dysuria, discharge Musculoskeletal: denies: back pain, arthralgia Skin: denies: rash, lesions Neurological: headache. denies: numbness, paresthesias Physical Exam - Physical Exam Vital Signs: Vital Signs 11/11/20 01:18 Temperature 99.5 F Pulse Rate 83 Respiratory 16 Rate Blood Pressure 125/79 [Right] O2 Sat by Pulse 99 Oximetry Physical Exam: GENERAL: The patient is well-developed well-nourished. HENT: Normocephalic. Atraumatic. Patient has moist mucous membranes. EYES: Extraocular motions are intact. No nystagmus. NECK: Supple. Trachea is midline. CHEST/LUNGS: Mild rhonchi heard. No tachypnea or accessory muscle use. No conversational dyspnea. HEART/CARDIOVASCULAR: Regular. There is no tachycardia. There is no murmur. ABDOMEN: Abdomen is soft, nontender. Patient has normal bowel sounds. There is no abdominal distention. SKIN: Skin is warm and dry. NEURO: The patient is awake, alert, and cooperative. The patient has no focal neurologic deficits. Normal speech. Cranial nerves II through XII grossly intact. No facial asymmetry. No pronator drift. MUSCULOSKELETAL: There is no tenderness or deformity. There is no limitation range of motion. ED Course Vital Signs 11/11/20 01:18 Temperature 99.5 F Pulse Rate 83 Respiratory 16 Rate Blood Pressure 125/79 [Right] O2 Sat by Pulse 99 Oximetry ED Medical Decision Making - Lab Data Result diagrams: 11/11/20 01:36 11/11/20 01:36 Lab Results 11/11/20 11/11/20 11/11/20 Range/Units 01:36 01:36 04:22 WBC 4.7 (4.5-11.0) K/mm3 RBC 4.65 (3.65-5.03) M/mm3 Hgb 13.2 (11.8-15.2) gm/dl Hct 39.2 (35.5-45.6) % MCV 84 (84-94) fl MCH 28 (28-32) pg MCHC 34 (32-34) % RDW 12.6 L (13.2-15.2) % Plt Count 366 (140-440) K/mm3 Lymph % (Auto) 10.3 L (13.4-35.0) % [place] % (Auto) 13.7 H (0.0-7.3) % Eos % (Auto) 0.1 (0.0-4.3) % Baso % (Auto) 0.4 (0.0-1.8) % Lymph # (Auto) 0.5 L (1.2-5.4) K/mm3 [place] # (Auto) 0.6 (0.0-0.8) K/mm3 Eos # (Auto) 0.0 (0.0-0.4) K/mm3 Baso # (Auto) 0.0 (0.0-0.1) K/mm3 Seg Neutrophils % 75.5 H (40.0-70.0) % Seg Neutrophils # 3.5 (1.8-7.7) K/mm3 Sodium 134 L (137-145) mmol/L Potassium 3.5 L (3.6-5.0) mmol/L Chloride 98.6 (98-107) mmol/L Carbon Dioxide 23 (22-30) mmol/L Anion Gap 16 mmol/L BUN 6 L (9-20) mg/dL Creatinine 0.6 L (0.8-1.3) mg/dL Estimated GFR > 60 ml/min BUN/Creatinine Ratio 10 % Glucose 108 H (75-100) mg/dL Calcium 8.9 (8.4-10.2) mg/dL Total Bilirubin 0.50 (0.1-1.2) mg/dL AST 25 (5-40) units/L ALT 28 (7-56) units/L Alkaline Phosphatase 57 (35-129) units/L Troponin T < 0.010 < 0.010 (0.00-0.029) ng/mL Total Protein 7.7 (6.3-8.2) g/dL Albumin 3.9 (3.9-5) g/dL Albumin/Globulin Ratio 1.0 % 11/11/20 Range/Units 07:35 WBC (4.5-11.0) K/mm3 RBC (3.65-5.03) M/mm3 Hgb (11.8-15.2) gm/dl Hct (35.5-45.6) % MCV (84-94) fl MCH (28-32) pg MCHC (32-34) % RDW (13.2-15.2) % Plt Count (140-440) K/mm3 Lymph % (Auto) (13.4-35.0) % [place] % (Auto) (0.0-7.3) % Eos % (Auto) (0.0-4.3) % Baso % (Auto) (0.0-1.8) % Lymph # (Auto) (1.2-5.4) K/mm3 [place] # (Auto) (0.0-0.8) K/mm3 Eos # (Auto) (0.0-0.4) K/mm3 Baso # (Auto) (0.0-0.1) K/mm3 Seg Neutrophils % (40.0-70.0) % Seg Neutrophils # (1.8-7.7) K/mm3 Sodium (137-145) mmol/L Potassium (3.6-5.0) mmol/L Chloride (98-107) mmol/L Carbon Dioxide (22-30) mmol/L Anion Gap mmol/L BUN (9-20) mg/dL Creatinine (0.8-1.3) mg/dL Estimated GFR ml/min BUN/Creatinine Ratio % Glucose (75-100) mg/dL Calcium (8.4-10.2) mg/dL Total Bilirubin (0.1-1.2) mg/dL AST (5-40) units/L ALT (7-56) units/L Alkaline Phosphatase (35-129) units/L Troponin T < 0.010 (0.00-0.029) ng/mL Total Protein (6.3-8.2) g/dL Albumin (3.9-5) g/dL Albumin/Globulin Ratio % - EKG Data -: EKG Interpreted by [place] EKG shows normal: sinus rhythm, axis, intervals, QRS complexes (LVH), ST-T waves Rate: normal - EKG Data When compared to previous EKG there are: previous EKG unavailable Interpretation: LVH - Radiology Data Radiology results: report reviewed CHEST 1 VIEW 11/11/2020 12:49 AM INDICATION / CLINICAL INFORMATION: chest pain. COMPARISON: 10/27/20 FINDINGS: SUPPORT DEVICES: None. HEART / MEDIASTINUM: No significant abnormality. LUNGS / PLEURA: Mild patchy bibasilar densities. No pneumothorax. ADDITIONAL FINDINGS: No significant additional findings. IMPRESSION: 1. Mild patchy bibasilar densities are nonspecific and could represent atelectasis versus early infiltrate. CT HEAD WITHOUT CONTRAST INDICATION / CLINICAL INFORMATION: Headache x 2 weeks, hx of brain tumor and surgery. TECHNIQUE: All CT scans at this location are performed using CT dose reduction for ALARA by means of automated exposure control. COMPARISON: CT dated 12/23/15 FINDINGS: HEMORRHAGE: None. EXTRA-AXIAL SPACES: Normal in size and morphology for the patient's age. VENTRICULAR SYSTEM: Normal in size and morphology for the patient's age. CEREBRAL PARENCHYMA: Mild right frontal encephalomalacia is unchanged. No acute territorial infarct. No mass lesion. MIDLINE SHIFT / HERNIATION: None. CEREBELLUM / BRAINSTEM: No significant abnormality. ORBITS: Normal as visualized. SOFT TISSUES: No significant abnormality. SKULL: Bifrontal craniotomy findings are unchanged. PARANASAL SINUSES / MASTOID AIR CELLS: Postoperative findings of the right sinuses are unchanged. ADDITIONAL FINDINGS: None. IMPRESSION: 1. No acute intracranial abnormality. 2. Postoperative and chronic findings are unchanged. - Medical Decision Making This patient presented yesterday evening with complaint of a generalized headache, some shortness of breath and generalized chest discomfort. Patient was diagnosed with COVID-19 about 1.5 weeks ago through an urgent care. On examination he does not have any focal, motor or sensory deficits and his cranial nerves are intact. There is some mild rhonchi heard bilaterally, but the patient does not appear in any respiratory or acute distress. Chest x-ray shows bilateral patchy opacities, worst in the lower lungs, that appears consistent with an atypical or viral pneumonia and appears consistent with a COVID-19 infection. EKG did not have any morphology consistent with ST elevation myocardial infarction. Labs have been mostly unremarkable including CBC, metabolic panel, negative troponins x3. Patient had a CT scan of the head without contrast secondary to his complaint of about a 2-week history of intermittent headaches, and his history of a previous brain tumor. However the CT scan resulted as negative without any evidence of hemorrhage, large vessel occlusion, edema, hydrocephalus, or any other acute process. Patient was given a dose of Tylenol for discomfort, Tessalon Perles for his cou gh, and antibiotics for the pneumonia. Patient was seen ambulatory in the emergency department and both appears and feels stable. He has a low heart score of 2. The patient's vital signs have been reassuring throughout his ED course including being afebrile. There has been no hypoxia, even with exertion/ambulation. For all these reasons the patient appears safe for discharge home. His contact information has been sent over to the [facility] [place], and someone from their office should be contacting him shortly for close outpatient follow-up as part of our [facility] low risk chest pain protocol. Critical Care Time: No Critical care attestation.: If time is entered above; I have spent that time in minutes in the direct care of this critically ill patient, excluding procedure time. ED Disposition Clinical Impression: COVID-19, Atypical chest pain Pneumonia Qualifiers: Pneumonia type: due to unspecified organism Laterality: bilateral Lung location: unspecified part of lung Qualified Code(s): J18.9 - Pneumonia, unspecified organism Headache Qualifiers: Headache type: unspecified Headache chronicity pattern: unspecified pattern Intractability: not intractable Qualified Code(s): R51.9 - Headache, unspecified Disposition: DC-01 TO HOME OR SELFCARE Is pt being admited?: No Condition: Stable Instructions: COVID-19, Nonspecific Chest Pain, Adult, Community-Acquired Pneumonia, Adult, Prevent the Spread of COVID-19 if You Are Sick - CDC, Bacterial Pneumonia (ED) Additional Instructions: Please follow-up with a primary care physician. Given your recent diagnosis of COVID-19, please quarantine/isolate yourself from anyone who is not vaccinated, elderly, immunocompromised, or chronically ill. I have sent your contact information over to the [facility] [place], and someone from their office should be contacting you for close outpatient follow-up regarding your intermittent chest pains. Just in case, I am giving you a referral for one of their duster tender, Dr. Coyne. Take all medications as prescribed. Return to the emergency department with any worsening of your symptoms, new or concerning symptoms not addressed during this current emergency department visit, or with any acute distress. Prescriptions: Amoxicillin/Potassium Clav [Augmentin 875-125 Tablet] 1 each PO BID #14 tablet Albuterol Mdi (or & Nicu Only) [ProAir HFA Inhaler] 2 puff IH QID PRN #8.5 gram PRN Reason: Shortness Of Breath Benzonatate [Tessalon Perles] 100 mg PO Q8HR PRN #20 capsule PRN Reason: Cough Referrals: PRIMARY CARE, [Primary Care Provider] - 3-5 Days AMI COYNE MD [Staff Physician] - 3-5 Days Time of Disposition: 00:32 HEART Score - HEART Score History: Slightly suspicious EKG: Normal Age: 45-65 Risk factors: 1-2 risk factors Troponin: Troponin T < 0.010 ng/mL (0.00-0.029) 11/11/20 07:35 Troponin: < normal limit HEART Score: 2 - Critical Actions Critical Actions: 0-3 pts:0.9-1.7%risk of adverse cardiac event.Candidate for discharge
[2020-11-11] MEDS ORDERED: AZITHROMYCIN 250 MG TAB PO ONE (22:29)
[2020-11-11] MEDS ORDERED: AMOXICILLIN/K CLAV 875/125MG TAB PO ONE (22:29)
[2020-11-11 22:39] VITALS: BP 128/69
--- NOTE | 2020-11-11 23:30 | Cat Scan Report ---
CT HEAD WITHOUT CONTRAST INDICATION / CLINICAL INFORMATION: Headache x 2 weeks, hx of brain tumor and surgery. TECHNIQUE: All CT scans at this location are performed using CT dose reduction for ALARA by means of automated exposure control. COMPARISON: CT dated 12/23/15 FINDINGS: HEMORRHAGE: None. EXTRA-AXIAL SPACES: Normal in size and morphology for the patient's age. VENTRICULAR SYSTEM: Normal in size and morphology for the patient's age. CEREBRAL PARENCHYMA: Mild right frontal encephalomalacia is unchanged. No acute territorial infarct. No mass lesion. MIDLINE SHIFT / HERNIATION: None. CEREBELLUM / BRAINSTEM: No significant abnormality. ORBITS: Normal as visualized. SOFT TISSUES: No significant abnormality. SKULL: Bifrontal craniotomy findings are unchanged. PARANASAL SINUSES / MASTOID AIR CELLS: Postoperative findings of the right sinuses are unchanged. ADDITIONAL FINDINGS: None. IMPRESSION: 1. No acute intracranial abnormality. 2. Postoperative and chronic findings are unchanged. Signer Name: Zulay Garcia MD Signed: 11/11/2020 11:26 PM Workstation Name: [id number]
--- NOTE | 2020-11-13 10:36 | Electrocardiograph Report ---
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
== END 2020-11-12 00:56 | disposition home or self-care (01) ==
LOC: ED 00:50
DX: U07.1 COVID-19 (principal); R07.9 Chest pain, unspecified; J18.9 Pneumonia, unspecified organism; R51.9 Headache, unspecified; J45.909 Unspecified asthma, uncomplicated
CPT/HCPCS: 36415; 70450; 71045; 80053; 84484; 85025; 93005

== ENCOUNTER 2021-03-23 09:31 | Outpatient (CLI) | payer MEDICARE ==
[2021-03-23 10:48] LABS: Hematocrit 44.1 % (35.5-45.6); Hemoglobin 14.5 gm/dl (11.8-15.2); Mean Corpuscular HGB Conc 33 % (32-34); Mean Corpuscular Volume 85 fl (84-94); Platelet Count 198 K/mm3 (140-440); Red Blood Count 5.18 M/mm3 (3.65-5.03)
--- NOTE | 2021-03-23 10:50 | XRay Report ---
CHEST 2 VIEWS INDICATION / CLINICAL INFORMATION: ASTHMA. COMPARISON: 11/11/2020 FINDINGS: SUPPORT DEVICES: None. HEART / MEDIASTINUM: No significant abnormality. LUNGS / PLEURA: No significant pulmonary or pleural abnormality. No pneumothorax. ADDITIONAL FINDINGS: No significant additional findings. IMPRESSION: 1. No acute findings. Signer Name: Jermain Reed DO Signed: 03/23/2021 10:46 AM Workstation Name: [id number]
[2021-03-23 11:20] LABS: Alanine Aminotransferase 44 units/L (7-56); Albumin 4.6 g/dL (3.9-5); BUN/Creatinine Ratio 23; Blood Urea Nitrogen 18 mg/dL (9-20); Calcium 9.5 mg/dL (8.4-10.2); Chol/HDL Ratio 2.12 %; HDL Cholesterol 55 mg/dL (40-59); Hemolysis Index 3; LDL Cholesterol,Direct 63 mg/dL (50-130)
== END 2021-03-23 09:32 | disposition home or self-care (01) ==
LOC: XRAY 09:31
PROVIDERS: ATTEND Internal Medicine
DX: G40.909 Epilepsy, unspecified, not intractable, without status epilepticus (principal); F99 Mental disorder, not otherwise specified; Z86.16 Personal history of COVID-19; J45.909 Unspecified asthma, uncomplicated; E78.00 Pure hypercholesterolemia, unspecified; J30.9 Allergic rhinitis, unspecified; K21.9 Gastro-esophageal reflux disease without esophagitis
CPT/HCPCS: 36415; 71046; 80053; 80061; 82550; 82728; 82785; 83615; 84436; 84443; 84484; 85027; 85379; 86003; 86140